=== PATIENT | male | born 1980 | race Caucasian/White ===

== ENCOUNTER 2024-04-17 07:21 | Day surgery (SDC) | payer BC, OTHER ==
[2024-04-10 16:18] VITALS: BMI 28.7
[2024-04-17] MEDS ORDERED: CEFAZOLIN SODIUM 2 GM in DEXTROSE 5%-WATER 100 ML IVPB ONE (08:00)
[2024-04-17] MEDS ORDERED: VANCOMYCIN 1,000 MG VIAL (RESTRICTED TO ID ONLY) ONE (08:18)
[2024-04-17] MEDS ORDERED: BUPIVACAINE HCL/EPINEPHRINE/PF 30 ML VIAL IJ ONE (08:18)
[2024-04-17] MEDS ORDERED: oxyCODONE HCL 5 MG TABLET PO PRN ×2 (09:49)
[2024-04-17] MEDS ORDERED: ACETAMINOPHEN 1000 MG/100 ML BAG IVPB ONE (09:49)
[2024-04-17] MEDS ORDERED: LACTATED RINGERS SOLUTION 1,000 ML IV SCH (10:00)
[2024-04-17] MEDS ORDERED: MIDAZOLAM HCL 2 MG/2 ML SINGLE DOSE VIAL ONE ×3 (10:04→11:36)
[2024-04-17] MEDS ORDERED: BUPIVACAINE LIPOSOME/PF (EXPAREL) 266 MG/20 ML VIAL ONE (10:05)
[2024-04-17] MEDS ORDERED: ACETAMINOPHEN INJECTION 100 ML IVPB ONE (10:06)
[2024-04-17] MEDS ORDERED: PROPOFOL 20 ML ONE (10:21)
[2024-04-17] MEDS ORDERED: TRANEXAMIC ACID 1000 MG/10 ML VIAL IVPUSH ONE (12:00)
[2024-04-17 13:12] VITALS: RESP 18
[2024-04-17] MEDS: ONDANSETRON 4 MG/2 ML VIAL ONE (15:18)
[2024-04-17] MEDS ORDERED: ONDANSETRON 4 MG/2 ML VIAL IVPB ONE (16:00)
[2024-04-17] MEDS ORDERED: ONDANSETRON 4 MG/2 ML VIAL IVPUSH ONE (16:18)
[2024-04-17 16:32] VITALS: BP 111/59; PULSE 59; TEMP 97.2
== END 2024-04-17 16:32 | disposition home or self-care (01) ==
LOC: FASU 07:21
PROVIDERS: ATTEND Orthopaedic Surgery
PROC: 0QSH04Z Reposition Left Tibia with Internal Fixation Device, Open Approach (ICD-10-PCS; principal; 2024-04-17 10:49)
PROC: 0SJD4ZZ Inspection of Left Knee Joint, Percutaneous Endoscopic Approach (ICD-10-PCS; 2024-04-17 10:49)
DX: M25.362 Other instability, left knee (principal)
CPT/HCPCS: 73560-TC-LT-FY; 94760; C1713; J0131